=== PATIENT | female | born 1970 | race Caucasian/White ===

== ENCOUNTER 2018-05-30 12:15 | Emergency (ER) | payer MEDICARE ==
[~2018-05-30] VITALS: Ht 165.1 cm; Wt 72.7 kg
[2018-05-30 12:30] VITALS: Ht 165.1 cm; Wt 72.7 kg
[2018-05-30] MEDS ORDERED: VISTARIL50 MG PO (12:43)
[2018-05-30] MEDS ORDERED: CYMBALTA60 MG PO (12:44)
[2018-05-30] MEDS ORDERED: LUNESTA2 M1 (12:45)
[2018-05-30] MEDS ORDERED: BUPROPION XL300 MG PO (12:45)
[2018-05-30 13:54] VITALS: BP 157/89
== END 2018-05-30 14:02 | disposition home or self-care (01) ==
LOC: D.ER 12:15
DX: S61.412A Laceration without foreign body of left hand, initial encounter (principal); W26.8XXA Contact with other sharp object(s), not elsewhere classified, initial encounter; Y93.89 Activity, other specified; Y92.019 Unspecified place in single-family (private) house as the place of occurrence of the external cause; F31.9 Bipolar disorder, unspecified; Z86.73 Personal history of transient ischemic attack (TIA), and cerebral infarction without residual deficits; B20 Human immunodeficiency virus [HIV] disease